=== PATIENT | male | born 1965 | race Caucasian/White ===

== ENCOUNTER 2021-11-17 06:42 | Day surgery (SDC) | payer OTHER ==
[2021-11-15 09:17] LABS: BASOPHILS % (AUTO) 0.5 % (0.0-5.0); EOSINOPHILS % (AUTO) 2.7 % (0.0-8.0); HEMATOCRIT 38.6 % (42-54); LYMPHOCYTES % (AUTO) 20.7 % (21.0-51.0); MEAN CORPUSCULAR HEMOGLOBIN 31.1 pg (27.0-33.0); MEAN CORPUSCULAR HGB CONC 34.2 g/dL (32.0-36.0); MEAN CORPUSCULAR VOLUME 90.8 fL (79-99); NEUTROPHILS % (AUTO) 69.8 % (40.0-77.0); PLATELET COUNT (AUTO) 169 K/uL (130-400); RED BLOOD CELL COUNT(AUTO) 4.25 MIL/uL (4.50-6.20); RED CELL DISTRIBUTION WIDTH 13.2 % (11.0-15.5); WHITE BLOOD COUNT (AUTO) 6.3 K/uL (4.8-10.8)
[2021-11-15 09:24] LABS: CREATININE 0.8 mg/dL (0.5-1.5); POTASSIUM 4.1 mmol/L (3.5-5.1)
[2021-11-15 09:26] LABS: INR 2.19 (0.85-1.15); PROTHROMBIN TIME 22.2 SEC (9.6-11.6)
[2021-11-15 09:27] LABS: PARTIAL THROMBOPLASTIN TIME 38.1 SEC (26.3-35.5)
[2021-11-16 08:59] VITALS: BP 127/57
[~2021-11-17] VITALS: Ht 190.5 cm; Wt 102.9 kg
[2021-11-17] VITALS (8 sets, daily range): BP systolic 122–142; BP diastolic 62–79
[~2021-11-17 06:42] MED LIST: ATOR10 PO; CEFAZOLIN SODIUM 1 GM VIAL IVP SCH; HYDR-4060 PO; LOSA25TA41 PO; OMEP20TA2 PO; WARF7.5T49 PO
[2021-11-17] MEDS ORDERED: 0.9%NACL 1000ML 1,000 ML IV ONE (06:45)
[2021-11-17 07:07] LABS: INR 1.95 (0.85-1.15)
[2021-11-17] MEDS ORDERED: IODIXANOL 320 MG/ML 100 ML VIAL ONE (07:23)
[2021-11-17] MEDS ORDERED: MEPERIDINE-PF 50 MG/ML SYG ONE (07:23)
[2021-11-17] MEDS ORDERED: MIDAZOLAM HCL 1 MG/ML 2ML VIAL ONE ×3 (07:23→08:40)
[2021-11-17] MEDS ORDERED: DiphenhydrAMINE HCL 50 MG/ML VIAL ONE (07:23)
[2021-11-17] MEDS ORDERED: BUPIVACAINE/PF 0.25% 30ML VIAL IJ ONE (07:23)
[2021-11-17] MEDS ORDERED: LIDOCAINE HCL 1% MDV 50ML VIAL ONE (07:24)
[2021-11-17] MEDS ORDERED: METO-391 PO (09:26)
[2021-11-17] MEDS ORDERED: ACETAMINOPHEN WITH CODEINE 1 TAB TAB PO PRN (09:30)
== END 2021-11-17 12:45 | disposition home or self-care (01) ==
LOC: DAH 06:42
PROVIDERS: ATTEND Internal Medicine Cardiovascular Disease
DX: I44.1 Atrioventricular block, second degree (principal); Z20.822 Contact with and (suspected) exposure to COVID-19; I49.5 Sick sinus syndrome; Z79.01 Long term (current) use of anticoagulants; Z79.899 Other long term (current) drug therapy
CPT/HCPCS: 33208; 36415 ×2; 71045; 80048; 85025; 85610 ×2; 85730; 93005; A4215; A4216; A4221; A4222; A4223 ×3; A4606; A4663; C1785; C1898 ×2; J0690; J1200; J2175; J2250 ×3; J3490 ×2; J7030; Q9967; 99156; 99157

== ENCOUNTER → 2023-10-16 | Outpatient (CLI) | payer OTHER ==
[~2023-10-16] MED LIST changes: +AMOX1TAB16 PO; -CEFAZOLIN SODIUM 1 GM VIAL IVP SCH; +METO-391 PO
== END | disposition home or self-care (01) ==
LOC: SHCH 11:17
PROVIDERS: ATTEND Internal Medicine Cardiovascular Disease
DX: I42.0 Dilated cardiomyopathy (principal); I51.7 Cardiomegaly; Z95.0 Presence of cardiac pacemaker; Z95.2 Presence of prosthetic heart valve
CPT/HCPCS: 93306

== ENCOUNTER → 2023-10-30 | Outpatient (CLI) | payer OTHER ==
[2023-10-30 16:26] LABS: BASOPHILS # (AUTO) 0.04 K/uL (0.00-0.20); BASOPHILS % (AUTO) 0.6 % (0.0-5.0); HEMATOCRIT 39.7 % (42-54); IMMATURE GRANULOCYTE ABSOLUTE 0.02 K/uL (0-1); LYMPHOCYTES # (AUTO) 1.7 K/uL (1.0-4.8); LYMPHOCYTES % (AUTO) 25.1 % (21.0-51.0); MEAN CORPUSCULAR HEMOGLOBIN 31.1 pg (27.0-33.0); MEAN CORPUSCULAR HGB CONC 33.5 g/dL (32.0-36.0); MEAN CORPUSCULAR VOLUME 92.8 fL (79-99); MONOCYTES # (AUTO) 0.5 K/uL (0.1-1.0); MONOCYTES % (AUTO) 7.4 % (3.0-13.0); NEUTROPHILS % (AUTO) 60.6 % (40.0-77.0); PLATELET COUNT (AUTO) 172 K/uL (130-400); RED BLOOD CELL COUNT(AUTO) 4.28 MIL/uL (4.50-6.20); RED CELL DISTRIBUTION WIDTH 13.8 % (11.0-15.5); WHITE BLOOD COUNT (AUTO) 6.7 K/uL (4.8-10.8)
[2023-10-30 16:45] LABS: ALBUMIN 3.7 g/dL (3.5-5.0); BILIRUBIN,TOTAL 0.6 mg/dL (0.2-1.0); CREATININE 0.8 mg/dL (0.5-1.5); POTASSIUM 4.7 mmol/L (3.5-5.1); TOTAL PROTEIN, SERUM 7.6 g/dL (6.0-8.3)
[2023-10-30 17:32] LABS: ERYTHROCYTE SEDIMENTATION RATE 22 MM/HR (0-20)
== END | disposition home or self-care (01) ==
LOC: LAB 11:57
PROVIDERS: ATTEND Internal Medicine Cardiovascular Disease
DX: Z95.2 Presence of prosthetic heart valve (principal)
CPT/HCPCS: 36415; 80053; 85025; 85651; 87040

== ENCOUNTER 2023-11-20 07:54 | Day surgery (SDC) | payer OTHER ==
[2023-11-18 09:18] VITALS: BP 123/70; PULSE 67; RESP 15
[2023-11-18 09:25] LABS: BASOPHILS # (AUTO) 0.05 K/uL (0.00-0.20); BASOPHILS % (AUTO) 0.8 % (0.0-5.0); EOSINOPHILS # (AUTO) 0.34 K/uL (0.00-0.70); EOSINOPHILS % (AUTO) 5.1 % (0.0-8.0); HEMATOCRIT 40.9 % (42-54); IMMATURE GRANULOCYTE ABSOLUTE 0.03 K/uL (0-1); LYMPHOCYTES # (AUTO) 1.2 K/uL (1.0-4.8); LYMPHOCYTES % (AUTO) 18.7 % (21.0-51.0); MEAN CORPUSCULAR HEMOGLOBIN 30.7 pg (27.0-33.0); MEAN CORPUSCULAR HGB CONC 32.8 g/dL (32.0-36.0); MEAN CORPUSCULAR VOLUME 93.6 fL (79-99); MONOCYTES # (AUTO) 0.5 K/uL (0.1-1.0); MONOCYTES % (AUTO) 6.9 % (3.0-13.0); NEUTROPHILS # (AUTO) 4.5 K/uL (1.8-7.7); PLATELET COUNT (AUTO) 141 K/uL (130-400); RED BLOOD CELL COUNT(AUTO) 4.37 MIL/uL (4.50-6.20); RED CELL DISTRIBUTION WIDTH 13.6 % (11.0-15.5); WHITE BLOOD COUNT (AUTO) 6.6 K/uL (4.8-10.8)
[2023-11-18 09:40] LABS: INR 1.91 (0.85-1.15); PROTHROMBIN TIME 21.2 SEC (9.6-11.6)
[2023-11-18 09:41] LABS: CREATININE 0.9 mg/dL (0.5-1.5); PARTIAL THROMBOPLASTIN TIME 38.2 SEC (26.3-35.5); POTASSIUM 4.6 mmol/L (3.5-5.1)
[~2023-11-20] VITALS: Ht 191.8 cm; Wt 106.3 kg
[~2023-11-20 07:54] MED LIST changes: -AMOX1TAB16 PO; +ASPI-1005 PO; -ATOR10 PO; -HYDR-4060 PO; +MULT-1367 PO; -OMEP20TA2 PO; +WARF10TA45 PO
[2023-11-20 08:15] VITALS: BP 116/71; PULSE 68; RESP 16
[2023-11-20] MEDS ORDERED: MIDAZOLAM HCL 1 MG/ML 2ML VIAL IVP ONE (08:30)
[2023-11-20] MEDS ORDERED: FENTANYL CITRATE PF 50 MCG/1 ML 2ML VIAL IVP ONE (08:30)
[2023-11-20] MEDS ORDERED: LIDOCAINE HCL 2% VISCOUS 15 ML UDCUP ONE (08:38)
[2023-11-20] MEDS ORDERED: 0.9%NACL 1000ML 1,000 ML IV ONE (08:39)
[2023-11-20 09:50] VITALS: BP 125/68; PULSE 66; RESP 16
[2023-11-20 09:55] VITALS: BP 126/74; PULSE 68; RESP 16
[2023-11-20 10:00] VITALS: BP 123/67; PULSE 66; RESP 16
[2023-11-20 10:05] VITALS: BP 125/68; PULSE 63; RESP 16
[2023-11-20 10:15] VITALS: BP 120/63; PULSE 65; RESP 16
== END 2023-11-20 10:20 | disposition home or self-care (01) ==
LOC: DAH 07:54 → EDSTATUS 08:00 → DAH 10:20
PROVIDERS: ATTEND Internal Medicine Cardiovascular Disease
DX: I42.0 Dilated cardiomyopathy (principal); I48.0 Paroxysmal atrial fibrillation; I07.1 Rheumatic tricuspid insufficiency; Z95.0 Presence of cardiac pacemaker; Z95.2 Presence of prosthetic heart valve; Z80.0 Family history of malignant neoplasm of digestive organs; Z82.49 Family history of ischemic heart disease and other diseases of the circulatory system; Z83.3 Family history of diabetes mellitus; Z72.89 Other problems related to lifestyle; Z79.82 Long term (current) use of aspirin; Z98.890 Other specified postprocedural states
CPT/HCPCS: 80048; 85025; 85610; 85730; 36415; 93005; 93312; J3010; J7030; J2250

== ENCOUNTER → 2023-11-26 | Outpatient (CLI) | payer OTHER ==
[2023-11-26] MEDS: REGADENOSON 0.4 MG/5 ML PF SYG IVP ONE (13:19)
== END | disposition home or self-care (01) ==
LOC: SHCH 08:20
PROVIDERS: ATTEND Internal Medicine Cardiovascular Disease
DX: I42.0 Dilated cardiomyopathy (principal); I44.7 Left bundle-branch block, unspecified; R06.00 Dyspnea, unspecified
CPT/HCPCS: 78452; 96374; 93017; J2785; A9500 ×2

== ENCOUNTER → 2023-12-16 | Outpatient (CLI) | payer OTHER | END | disposition home or self-care (01) | LOC: SHCH 07:31 | PROVIDERS: ATTEND Internal Medicine Cardiovascular Disease | DX: I42.0 Dilated cardiomyopathy (principal); I25.5 Ischemic cardiomyopathy | CPT/HCPCS: 78481; A9512 ==

== ENCOUNTER → 2025-01-05 | Outpatient (CLI) | payer OTHER ==
[2025-01-05 13:10] LABS: INR 2.32 (0.85-1.15); PROTHROMBIN TIME 22.6 SEC (9.6-11.6)
== END | disposition home or self-care (01) ==
LOC: LAB 09:48
PROVIDERS: ATTEND Internal Medicine Cardiovascular Disease
DX: Z51.81 Encounter for therapeutic drug level monitoring (principal); I48.0 Paroxysmal atrial fibrillation; Z79.01 Long term (current) use of anticoagulants
CPT/HCPCS: 36415; 85610; 85730